=== PATIENT | female | born 1965 | race Caucasian/White ===

== ENCOUNTER 2024-07-10 08:32 | Emergency (ER) | payer BC ==
[~2024-07-10] VITALS: Ht 167.6 cm; Wt 61.2 kg
[2024-07-10 08:46] VITALS: BP 131/80; TEMP 98.4; O2SAT 99
[2024-07-10] MEDS ORDERED: POLY10DR3 EACHEYE (08:59)
== END 2024-07-10 09:08 | disposition home or self-care (01) ==
LOC: ER 08:38
DX: H10.33 Unspecified acute conjunctivitis, bilateral (principal); R11.2 Nausea with vomiting, unspecified; J02.9 Acute pharyngitis, unspecified; Z88.0 Allergy status to penicillin; Z90.89 Acquired absence of other organs